=== PATIENT | female | born 1975 | race Caucasian/White ===

== ENCOUNTER → 2016-12-18 | Outpatient (CLI) | payer OTHER ==
--- NOTE | 2016-12-18 10:33 | MA ---
Bilateral Digital Screening Mammography with Supplementary Views of the Right Breast Clinical History: 41-year-old female whose physician noted a right breast lump reportedly in the 4 o' clock position. The patient takes hormone replacement, and her family history is notable for a patern al grandmother at an unspecified age. ICD 10 Diagnostic Code: N63. TECHNIQUE: Digital CC and MLO views of each breast as well as lateral medial and spot compression meter/relay craftsman niocaudal and MLO views of the right breast were obtained. This is patient's baseline study. The stud y is also CAD checked. Breast Density: Type C. CAD Evaluation: Negative. FINDINGS: There is a heterogeneously dense residual fibroglandular pattern. There is no focal dominan t mass or architectural distortion. There are no suspicious cluster magnifications. With reference to the medial aspect of the right breast, there is no mammographic abnormality, however targeted sonogr aphy will be performed nonetheless. IMPRESSION: Needs additional imaging evaluation. BI-RADS category 0, incomplete. RECOMMENDATION: Sonography of the medial aspect of the right breast (attention 4:00 position). [facility] will send a result letter to the patient.
--- NOTE | 2016-12-18 12:38 | US ---
Right Breast Sonography Clinical history: 41-year-old female whose physician felt a lump in the medial aspect of the right br east. The patient does not feel this, though believes that the area of concern is in the 4 o'clock po sition. Diagnostic mammography was unrevealing. TECHNIQUE: A linear 12 MHz transducer was used to sonographically evaluate the medial aspect of the r ight breast from 2-4 o'clock from the level of the nipple out to the peripheral medial edge of the br east. Both the regulatory affairs spec and the sonologist performed the exam. COMPARISON STUDY: Diagnostic mammography from earlier this morning. FINDINGS: There is normal fibroglandular tissue, with no solid or cystic mass, or unusual acoustic sh adowing. IMPRESSION: Negative targeted right breast sonography. Recommendation: Assessment of any area of palpable concern should also be based upon its clinical linh its.
== END ==
LOC: BRMIMAGING 09:04
PROVIDERS: ATTEND Obstetrics & Gynecology
DX: Z12.39 Encounter for other screening for malignant neoplasm of breast (principal)
CPT/HCPCS: 76641-PO; G0204